=== PATIENT | male | born 1955 | race Caucasian/White ===

== ENCOUNTER 2021-07-14 17:53 | Emergency (ER) | payer MEDICARE, SELFPAY ==
[2021-07-14 20:16] VITALS: BP 139/84; PULSE 75; RESP 18; TEMP 36.8; O2SAT 98; BMI 26.4
--- NOTE | 2021-07-14 20:57 | ED.GENADULT ---
HPI - General Adult General Chief complaint: General Medical Stated complaint: tick bite in belly button 3 wks ago Time Seen by Provider: 07/14/21 20:57 Source: patient Mode of arrival: ambulatory Limitations: no limitations History of Present Illness HPI narrative: This is a 65-year-old male presenting to the emergency department with redness, swelling to the umbilicus X1 day. Patient tells me that he got bit by a tick 3 weeks ago, he tells me that the tick was successfully removed, and no issues after removal of the tick however today suddenly noticed swelling, and discoloration to the area. Patient denies fevers, chills, headache, dizziness, vision changes, chest pain, shortness of breath, nausea, vomiting, joint pain. No history of Lyme disease. Onset (ago): day(s) (1) Location: abdomen (belly button ) Radiation: non-radiation Severity: mild Quality: burning Pain Consistency: constant Relieving factors: none Exacerbating factors: none Associated symptoms: denies other symptoms Treatments prior to arrival: none Related Data Previous Rx's Medication Instructions Recorded doxycycline hyclate 100 mg tablet 100 mg PO BID 21 Days #42 tab 07/14/21 Allergies Allergy/AdvReac Type Severity Reaction Status Date / Time Unable to Assess Allergy Unverified 07/14/21 21:02 Review of Systems Review of Systems: Constitutional : No Fever, No Chills, Cardiovascular : No Chest Pain, No SOB Respiratory : No Dyspnea Gastrointestinal : No abdominal pain Musculoskeletal : No Joint Swelling Skin : + rash, No skin laceration, + erythema Neuro : No Weakness, No Numbness Psych : No SI/HI Yes all other systems are reviewed and are negative [facility] Past Medical History Attestation statement: The following information was validated with the patient. Source: old records reviewed and nursing notes reviewed Social History Social History Advance Directives: No Physical Exam ED Vital Signs: Vital Signs - 24 hr 07/14/21 20:16 Temperature 98.3 F Pulse Rate 75 Respiratory Rate 18 Blood Pressure 139/84 Pulse Oximetry 98 BMI result Body Mass Index 26.4 VSS Appearance: Alert.? Oriented X3.? No acute distress.? Head: Normocephalic, atraumatic, no step-offs or deformities Eyes: Pupils equal, round and reactive to light.? Neck: Normal inspection.? Neck supple.? CVS: Normal heart rate and rhythm.? Pulses normal.? Respiratory: No respiratory distress.? Breath sounds normal.? Abdomen: Soft and nontender.? Skin: Skin warm and dry.? Normal skin color.? Normal skin turgor.?+ edema, erythema in a circular shape noticed on around the umbilicus. Likely erythema migrans. Images in chart. Extremities: No lower extremity edema.? No calf ttp. 5/5 strength to bilateral upper and lower extremities Neuro: Oriented X 3.? No motor deficit.? No sensory deficit. CN 2-12 intact Course Reevaluation(s) Reevaluation #1: Discussed treatment plan with patient will prophylactically treat for Lyme disease 100 mg of doxycycline p.o. b.i.d. times 21 days. I did order Lyme test on this patient, he will be called with results. Outlined worrisome signs and symptoms on discharge. I feel comfortable with discharge home. Time: 21:17 Medical Decision Making [facility] Narrative Medical decision making narrative: [address]100 65-year-old emergency department with edema, erythema X1 day status post getting bit by a tick 3 weeks ago. No history of Lyme disease. Physical examination significant for edema and erythema in and around the umbilicus. Appears to be erythema migrans. Neuro exam is nonfocal. Regular rate and rhythm. Lungs clear. Abdomen soft nontender nondistended. Plan at this time is to obtain Lyme titers. History and physical examination concerning for Lyme disease/erythema migrans. Medical Records Medical records reviewed: Yes I reviewed the patient's medical records. Lab Data Lab results reviewed: Yes I reviewed the patient's lab results. Critical Care Time Critical Care Time Critical Care Time: No Discharge Plan Discharge Clinical Impression: Tick bite, Cellulitis, Erythema migrans (Lyme disease) Patient Disposition: Home, Self-Care Instructions: Cellulitis (ED), Tick Bite (ED), Cold Compress or Soak (ED) Additional Instructions: Take your medications as prescribed. If you were prescribed antibiotics today, it is important that you take your medication to their entirety, do not skip any doses, do not finish them early. Follow-up with your primary care provider this week. Return to the emergency department with new or worsening symptoms. Such as fevers, chills, chest pain, shortness of breath, nausea, vomiting, dizziness, headache, vision changes, lethargy, weakness, worsening pain, swelling or redness In case of emergency call 911 As I educated you on doxycycline can cause skin sensitivity indirect sunlight. Please take caution when it exposing herself to direct sunlight. Based off findings on physical examination in your history there is a concern for Lyme disease therefore you will be treated for 21 days with doxycycline You will be called only with positive test results. Check the patient portal as well. Prescriptions: New doxycycline hyclate 100 mg tablet 100 mg PO BID 21 Days Qty: 42 0RF Referrals: Pratik Bustillos DO [Primary Care Provider] - 2 days
[2021-07-17 17:07] LABS: Lyme Abs Screen <0.90 index
== END 2021-07-14 21:53 | disposition home or self-care (01) ==
PROVIDERS: Physician Assistant; Emergency Provider Emergency Medicine Emergency Medical Services; PCP Family Medicine
DX: A69.20 Lyme disease, unspecified (principal); T63.481A Toxic effect of venom of other arthropod, accidental (unintentional), initial encounter; L03.311 Cellulitis of abdominal wall; Y92.9 Unspecified place or not applicable
CPT/HCPCS: 36415; 86617; 86618; 99282

== ENCOUNTER 2022-10-24 17:44 | Emergency (ER) | payer MEDICARE, SELFPAY ==
--- NOTE | ~2022-10-24 | XR_ITS ---
EXAMINATION: XR CHEST 2 VIEWS CLINICAL INFORMATION: Fever and chills. COMPARISON: None. TECHNIQUE: Frontal and lateral views of the chest were obtained. FINDINGS: The heart, great vessels, pulmonary vasculature and mediastinum are normal. The lungs show no focal infiltrate, effusion or pneumothorax. There is no acute osseous abnormality. XR/XR chest 2V IMPRESSION: No active cardiopulmonary disease.
--- NOTE | 2022-10-24 18:10 | ED_ITS ---
HPI - Fever General Chief Complaint: Fever Stated Complaint: fever sent from urgent care Time Seen by Provider: 10/24/22 21:22 Source: patient Mode of arrival: ambulatory Limitations: no limitations History of Present Illness HPI Narrative: Patient otherwise healthy been complaining of body fever vesicular rash behind right knee for last 3 4 days was seen at urgent care today temperature was 101.6 degrees patient denies any tick bite Patient had similar rash for last few years off and on No cough from upper respiratory symptoms no urinary symptoms no nausea no vomiting No recent travel no other family member has same complaints patient had labs drawn prior to my evaluation showed normal lactic acid and WBC count Related Data Previous Rx's Medication Instructions Recorded doxycycline hyclate 100 mg tablet 100 mg PO BID 21 days #42 tabs 07/14/21 cephalexin 500 mg capsule 500 mg PO QID 10 days #40 caps 10/24/22 doxycycline hyclate 100 mg tablet 100 mg PO BID #20 tabs 10/24/22 Allergies Allergy/AdvReac Type Severity Reaction Status Date / Time No Known Allergies Allergy Verified 10/24/22 18:10 Review of Systems 2 Review of Systems: Yes all other systems are reviewed and are negative [facility] Social History Social History Alcohol intake: never Smoked in Last 30 Days: No Use of substances other than those prescribed or required for medical reasons: No Physical Exam 2 Vital Signs: Vital Signs: Last Vital Signs Temp 98.7 F 10/24/22 21:18 Pulse 82 10/24/22 21:18 Resp 14 10/24/22 21:18 BP 128/78 10/24/22 21:18 Pulse Ox 98 10/24/22 21:18 O2 Del Method Room Air 10/24/22 21:18 BMI result Body Mass Index 25.8 Appearance: Alert. Oriented X3. No acute distress. Eyes: PERRLA, No Nystagmus ENT: Pharynx normal. Oral Mucosa moist Neck: Normal inspection. Neck supple. CVS: Normal heart rate and rhythm. Pulses normal. Respiratory: No respiratory distress. Equal air entry bilateral, no wheezing/rales/rhonchi Abdomen: Soft and nontender. Bowel sounds are present, no mass palpable, no CVA tenderness Skin: Skin warm and dry. Normal skin color. Normal skin turgor. Extremities: Rash behind right knee Neuro: Oriented X 3. Course Course Course Narrative: This is a rapid medical exam. Deferred additional HPI, ROS, PE to primary provider. 66 yo male with history of NSTEMI (on asa, statin) here with complaints of 2-3 days of fatigue, night sweats, fever (max temp 101.6). ?received tylenol [employer]. Will obtain labs, CXR, UA, viral testing VSS Medical Decision Making Medical Decision Making MDM Narrative: Cultures from the ruptured vesicle were taken etiology is not very clear start patient on doxycycline cephalexin serology sample was taken Differential Diagnosis Differential Diagnoses: The differential diagnosis associated with the presentation includes Tick-borne disease/infected poison lynsey with cellulitis/fever of unknown origin Lab Data MDM Lab Attestation statement: I reviewed the patient's lab results. 10/24/22 19:09 10/24/22 19:09 Labs: Lab Results 10/24/22 10/24/22 10/24/22 Range/Units 19:06 19:09 21:24 WBC 7.0 (4.8-10.8) X10*3/uL RBC 4.11 L (4.60-5.80) X10*6/uL Hgb 12.4 L (14.0-18.0) g/dl Hct 36.1 L (42.0-52.0) % MCV 87.8 (80.0-98.0) fL MCH 30.2 (27.0-33.0) pg MCHC 34.3 (31.0-36.0) g/dl RDW 13.2 (11.0-16.0) % Plt Count 102 L (160-400) X10*3/uL MPV 9.9 (9.4-12.4) fL Immature Gran % (Auto) 0.7 H (0.0-0.4) % Neut % (Auto) 66.4 (45-73) % Lymph % (Auto) 18.4 L (20-40) % Walker % (Auto) 13.7 H (2-11) % Eos % (Auto) 0.4 (0-4) % Baso % (Auto) 0.4 (0-2) % Lymph # (Auto) 1.3 (1.2-4.9) X10*3/uL Walker # (Auto) 1.0 (0.1-1.2) X10*3/uL Eos # (Auto) 0.0 (0.0-0.4) X10*3/uL Baso # (Auto) 0.0 (0.0-0.2) X10*3/uL Abs Immat Gran (auto) 0.05 H (0.00-0.03) X10*3/uL Absolute Neuts (auto) 4.6 (2.0-8.3) x10*3/uL Absolute Nucleated RBC 0.000 (0.0-0.012) X10*3/uL Nucleated RBC % (auto) 0.0 (0.0-0.2) /100WBC Sodium 129 L (135-145) mmol/L Potassium 4.6 (3.3-5.1) mmol/L Chloride 96 (96-108) mmol/L Carbon Dioxide 26 (22-29) mmol/L Anion Gap 12 (12-20) BUN 17 H (9-16) mg/dL Creatinine 0.83 (0.5-1.4) mg/dL Estim Creat Clear Calc 82.4 Estimated GFR > 60 Random Glucose 120 H (60-115) mg/dL Lactic Acid 0.8 (0.5-2.0) mmol/L Calcium 8.5 (8.4-10.2) mg/dL Magnesium 2.0 (1.6-2.6) mg/dL Total Bilirubin 1.8 H (0.0-1.0) mg/dL Direct Bilirubin 0.5 (0.0-0.5) mg/dL AST 39 H (5-37) U/L ALT 37 (0-40) U/L Alkaline Phosphatase 86 (39-117) U/L Total Creatine Kinase 134 (38-174) U/L Total Protein 6.8 (6.5-8.0) g/dL Albumin 3.3 L (3.5-5.0) g/dL Urine Color Yellow Urine Appearance Clear Urine pH 6.5 (5.0-9.0) Ur Specific [place] <= 1.005 (1.005-1.025) Urine Protein Negative (Neg-Trace) mg/dL Urine Glucose (UA) Negative (Negative) mg/dL Urine Ketones Negative (Negative) mg/dL Urine Blood Negative (Negative) Urine Nitrite Negative (Negative) Ur Leukocyte Esterase Negative (Negative) Influenza Type A (PCR) NEGATIVE (Negative) Influenza Type B (PCR) NEGATIVE (Negative) RSV RNA Qual (PCR) NEGATIVE (Negative) SARS-CoV-2 RNA (RT-PCR) NEGATIVE (Negative) Discharge Plan Discharge Clinical Impression: Cellulitis, Fever of unknown origin Patient Disposition: Home, Self-Care Instructions: Cellulitis (ED), Fever in Adults (ED) Additional Instructions: Care of the wound as advised Tylenol/Motrin for fever Cause of the fever is not very clear likely tick-borne disease cultures are taken reports are pending Take antibiotics meanwhile as prescribed Prescriptions: New cephalexin 500 mg capsule 500 mg PO QID 10 Days Qty: 40 0RF doxycycline hyclate 100 mg tablet 100 mg PO BID Qty: 20 0RF No Action doxycycline hyclate 100 mg tablet 100 mg PO BID 21 Days Qty: 42 0RF
[2022-10-24 18:11] VITALS: BP 136/86; PULSE 83; RESP 18; TEMP 37.6; O2SAT 99; BMI 25.8
[2022-10-24 19:17] LABS: MANUAL DIFF FLAG NO
[2022-10-24 19:29] LABS: Lactic Acid 0.8 mmol/L (0.5-2.0)
[2022-10-24 19:34] LABS: Alanine Aminotransferase 37 U/L (0-40); Albumin Level 3.3 g/dL (3.5-5.0); Alkaline Phosphatase 86 U/L (39-117); Anion Gap 12 (12-20); Aspartate Amino Transferase 39 U/L (5-37); Bilirubin Direct 0.5 mg/dL (0.0-0.5); Bilirubin Total 1.8 mg/dL (0.0-1.0); Blood Urea Nitrogen 17 mg/dL (9-16); Calcium 8.5 mg/dL (8.4-10.2); Carbon Dioxide 26 mmol/L (22-29); Chloride 96 mmol/L (96-108); Creatinine Clr Calc Pharmacy 82.4; Estimated Glomerular Filt Rate > 60; Glucose Random 120 mg/dL (60-115); Potassium 4.6 mmol/L (3.3-5.1); Sodium 129 mmol/L (135-145); Total Protein 6.8 g/dL (6.5-8.0)
[2022-10-24 19:44] LABS: Basophils Percent Auto 0.4 % (0-2); Eosinophils Percent Auto 0.4 % (0-4); Hematocrit 36.1 % (42.0-52.0); Hemoglobin 12.4 g/dl (14.0-18.0); Imm Gran Abs Auto 0.05 X10*3/uL (0.00-0.03); Imm Gran Pct Auto 0.7 % (0.0-0.4); Lymphocytes Absolute Auto 1.3 X10*3/uL (1.2-4.9); Lymphocytes Percent Auto 18.4 % (20-40); Mean Corpuscular HGB Conc 34.3 g/dl (31.0-36.0); Mean Corpuscular Hemoglobin 30.2 pg (27.0-33.0); Mean Corpuscular Volume 87.8 fL (80.0-98.0); Mean Platelet Volume 9.9 fL (9.4-12.4); Monocytes Percent Auto 13.7 % (2-11); Neutrophils Absolute Auto 4.6 x10*3/uL (2.0-8.3); Neutrophils Percent Auto 66.4 % (45-73); Platelet Count 102 X10*3/uL (160-400); Red Blood Count 4.11 X10*6/uL (4.60-5.80); Red Cell Distribution Width 13.2 % (11.0-16.0)
[2022-10-24 20:01] LABS: Influenza A PCR NEGATIVE (Negative); Influenza B PCR NEGATIVE (Negative); Resp Syncy Virus RNA Qual PCR NEGATIVE (Negative); SARS COV2 PCR INHOUSE NEGATIVE (Negative)
[2022-10-24 21:18] VITALS: BP 128/78; PULSE 82; RESP 14; TEMP 37.1; O2SAT 98
[2022-10-24 21:31] LABS: Appearance Urine Clear; Color Urine Yellow; Glucose Urine UA Negative (Negative); Leukocyte Esterase Urine Negative (Negative); Nitrite Urine Negative (Negative); PH 6.5 (5.0-9.0); Specific Gravity - Urine <= 1.005 (1.005-1.025); Urine Blood Negative (Negative); Urine Ketones Negative (Negative); Urine Protein Negative (Neg-Trace)
--- NOTE | 2022-10-24 21:38 | PC.NURSE ---
Addendum entered by Flora Lamas 10/24/22 22:04: Pt has redness, raised, blisters to back of right upper calf, draining yellow fluid. Wound culture obtained by provider and sent to lab. Original Note: Pt AOx3, pt speaking in full sentences, ambulatory to bathroom with a steady gait, pt denies pain/SOB/CP/palpitations. Pt reports weakness/decrease in appetite x Friday. Pt is afebrile mayda. VSS.
[2022-10-24] MEDS: cephALEXin 500 MG CAPSULE PO (22:01)
[2022-10-24] MEDS: Doxycycline Monohydrate 100 MG CAPSULE PO (22:01)
[2022-10-28 21:08] LABS: Lyme Blot 7.21 index
[2022-10-31 11:23] LABS: Lyme Abs Screen POSITIVE
[2022-10-31 11:57] LABS: A. Phagocytophilum Ab IgM <1:20 (<1:20); E. Chaffeensis Ab IgG <1:64 (<1:64); E. Chaffeensis Ab IgM 1:40 (<1:20); Interpretation EQUIVOCAL; Interpretation PAST INFECTION
[2022-11-01 22:23] LABS: 18 KD (IgG) Band REACTIVE; 23 KD (IgG) Band NON-REACTIVE; 23 KD (IgM) Band NON-REACTIVE; 28 KD (IgG) Band NON-REACTIVE; 30 KD (IgG) Band NON-REACTIVE; 39 KD (IgM) Band NON-REACTIVE; 39KD (IgG) Band NON-REACTIVE; 41 KD (IgM) Band NON-REACTIVE; 41KD (IgG) Band REACTIVE; 45 KD (IgG) Band NON-REACTIVE; 58 KD (IgG) Band NON-REACTIVE; 66 KD (IgG) Band NON-REACTIVE; 93 KD (IgG) Band NON-REACTIVE; Lyme IgG Blot Interp NEGATIVE (NEGATIVE); Lyme IgM Blot Interp NEGATIVE (NEGATIVE)
== END 2022-10-24 22:08 | disposition home or self-care (01) ==
LOC: HO.ED 21:51
PROVIDERS: Nurse Practitioner Family; Emergency Provider Internal Medicine; PCP Family Medicine
DX: R50.9 Fever, unspecified (principal); L03.115 Cellulitis of right lower limb; Z20.822 Contact with and (suspected) exposure to COVID-19; Z20.828 Contact with and (suspected) exposure to other viral communicable diseases; Z79.899 Other long term (current) drug therapy
CPT/HCPCS: 0241U; 36415; 71046; 80048; 80076; 81003; 82550; 83605; 83735; 85025; 86617; 86618; 86666; 86753; 87040; 87070; 87205; 99283; 99284

== ENCOUNTER 2023-03-30 02:24 | Emergency (ER) | payer MEDICARE, SELFPAY ==
--- NOTE | ~2023-03-30 | XR_ITS ---
EXAMINATION: XR CHEST CLINICAL INFORMATION: Cough and congestion. COMPARISON: 10/24/2022. TECHNIQUE: Frontal view of the chest was obtained. FINDINGS: No significant abnormality is noted involving the heart, lungs, mediastinum, bony thorax or soft tissues. XR/XR chest 1V IMPRESSION: Unremarkable examination.
[2023-03-30 02:38] VITALS: BP 147/86; PULSE 74; RESP 18; TEMP 36.9; O2SAT 97; BMI 26.6
[2023-03-30 03:14] VITALS: O2SAT 97
[2023-03-30 03:32] LABS: Influenza A PCR POSITIVE (Negative); Influenza B PCR NEGATIVE (Negative); Resp Syncy Virus RNA Qual PCR NEGATIVE (Negative); SARS COV2 PCR INHOUSE POSITIVE (Negative)
--- NOTE | 2023-03-30 03:58 | ED.URI ---
HPI - URI/Sore Throat General Chief Complaint: Upper Respiratory Symptoms Stated Complaint: congestion Time Seen by Provider: 03/30/23 03:58 Source: patient Mode of arrival: ambulatory Limitations: no limitations History of Present Illness HPI Narrative: Patient had COVID about 2 weeks ago got better again for last 4 days been having runny nose and congestion no shortness of breath no fever no chills Related Data Previous Rx's Medication Instructions Recorded doxycycline hyclate 100 mg tablet 100 mg PO BID 21 days #42 tabs 07/14/21 cephalexin 500 mg capsule 500 mg PO QID 10 days #40 caps 10/24/22 doxycycline hyclate 100 mg tablet 100 mg PO BID #20 tabs 10/24/22 doxycycline hyclate 100 mg capsule 100 mg PO BID 11 days #22 caps 11/02/22 codeine 10 mg-guaifenesin 100 mg/5 10 ml PO Q6H PRN cough #237 mL 03/30/23 mL oral liquid Allergies Allergy/AdvReac Type Severity Reaction Status Date / Time No Known Allergies Allergy Verified 03/30/23 02:38 Review of Systems Review of Systems: Yes all other systems are reviewed and are negative [facility] Social History Social History Alcohol intake: former Smoked in Last 30 Days: No Use of substances other than those prescribed or required for medical reasons: No Advance Directives: No Advance Directives Information Provided: No Physical Exam Vital Signs: Vital Signs: Last Vital Signs Temp 97.9 F 03/30/23 05:06 Pulse 89 03/30/23 05:06 Resp 18 03/30/23 05:06 BP 137/86 03/30/23 05:06 Pulse Ox 98 03/30/23 05:06 O2 Del Method Room Air 03/30/23 05:06 BMI result Body Mass Index 26.6 Appearance: Alert. Oriented X3. No acute distress. ENT: Pharynx normal. Oral Mucosa moist Neck: Normal inspection. Neck supple. CVS: Normal heart rate and rhythm. Pulses normal. Respiratory: No respiratory distress. Equal air entry bilateral, no wheezing/rales/rhonchi Abdomen: Soft and nontender. Bowel sounds are present, Skin: Skin warm and dry. Normal skin color. Normal skin turgor. Extremities: No lower extremity edema. No calf tenderness Neuro: Oriented X 3. Medications Administered Discontinued Medications Generic Name Dose Route Start Last Admin Trade Name Freq PRN Reason Stop Dose Admin Benzonatate 200 mg 03/30/23 04:03 03/30/23 04:55 Benzonatate 100 Mg Capsule PO 03/30/23 04:04 200 mg ONCE ONE Administration Medical Decision Making Medical Decision Making [facility] Narrative: Patient with COVID and flu positive discharge patient home on supportive treatment saturating 98% on room air, chest x-ray negative for infiltrate Differential Diagnosis Differential Diagnoses: The differential diagnosis associated with the presentation includes Viral syndrome Lab Data [facility] Lab Attestation statement: I reviewed the patient's lab results. Labs: Lab Results 03/30/23 Range/Units 02:50 Influenza Type A (PCR) POSITIVE A (Negative) Influenza Type B (PCR) NEGATIVE (Negative) RSV RNA Qual (PCR) NEGATIVE (Negative) SARS-CoV-2 RNA (RT-PCR) POSITIVE A (Negative) Independent Interpretation I performed an independent interpretation of an: Plain X-Ray Radiology Impression Discussion of test interpretation with radiology: I have reviewed the radiologist's reading. Discharge Plan Discharge Clinical Impression: COVID-19, Influenza A Patient Disposition: Home, Self-Care Instructions: Influenza (ED), COVID-19 (Coronavirus Disease 2019) (ED) Additional Instructions: Rest at home Social distancing as advised Cough syrup as advised Tylenol/Motrin for fever/pain Prescriptions: New codeine-guaifenesin 10-100 mg/5 mL liquid 10 ml PO Q6H PRN (Reason: cough) Qty: 237 0RF No Action doxycycline hyclate 100 mg tablet 100 mg PO BID 21 Days Qty: 42 0RF cephalexin 500 mg capsule 500 mg PO QID 10 Days Qty: 40 0RF doxycycline hyclate 100 mg tablet 100 mg PO BID Qty: 20 0RF doxycycline hyclate 100 mg capsule 100 mg PO BID 11 Days Qty: 22 0RF Interventions: ED Discharge Assessment Last Done: 03/30/23 05:07 Discharge Date/Time: 03/30/23 05:08
[2023-03-30] MEDS: Benzonatate 100 MG CAPSULE 200 MG PO (04:55)
[2023-03-30 05:06] VITALS: BP 137/86; PULSE 89; RESP 18; TEMP 36.6; O2SAT 98
== END 2023-03-30 05:08 | disposition home or self-care (01) ==
PROVIDERS: Emergency Provider Internal Medicine; PCP Family Medicine
DX: U07.1 COVID-19 (principal); J10.1 Influenza due to other identified influenza virus with other respiratory manifestations; R05.9 Cough, unspecified
CPT/HCPCS: 0241U; 71045; 99283; 99284